=== PATIENT | male | born 1955 | race African-American/Black ===

== ENCOUNTER 2019-03-02 08:57 | Inpatient (IN) | payer OTHER ==
[~2019-03-02] VITALS: Ht 190.5 cm; Wt 109.3 kg
[~2019-03-02 08:57] MED LIST: ATORVASTATIN PO; BACITRACIN 50,000 UNIT ONE; BACITRACIN OINT 500U/GM, 15 GM ONE; BUPIVACAINE/PF 0.25% ONE; BUPIVACAINE/PF-EPI 0.5% 1:200K ONE; FENTANYL PF 250 MCG/5ML ONE; LISINOPRIL PO; MIDAZOLAM 1 MG/ML, 2ML ONE; PROPOFOL 50 ML ONE; SERTRALINE; THROMBIN 20,000 UNIT VIAL TP ONE; VANCOMYCIN 1,000 MG ONE; VITA1TAB19 PO; VITAMIN D PO
[2019-03-02] MEDS ORDERED: DIAZEPAM 5 MG TABLET PO ONE (09:00)
[2019-03-02] MEDS ORDERED: ACETAMINOPHEN 500 MG TABLET PO ONE (09:00)
[2019-03-02] MEDS ORDERED: GABAPENTIN 300 MG CAPSULE PO ONE (09:00)
[2019-03-02] MEDS ORDERED: LACTATED RINGERS 1,000 ML IV SCH (09:16)
[2019-03-02 09:26] VITALS: BP 141/96
[2019-03-02] MEDS ORDERED: ONDANSETRON 2MG/ML, 2ML IV PRN ×2 (11:00→16:30)
[2019-03-02] MEDS ORDERED: OXYcodone 5 MG/5 ML ORAL.SOL UDC PO PRN (11:00)
[2019-03-02] MEDS ORDERED: hydrALAzine 20 MG/ML, 1ML IV PRN (11:00)
[2019-03-02] MEDS ORDERED: DIAZEPAM 5 MG/ML, 2ML IVPush PRN (11:00)
[2019-03-02] MEDS ORDERED: ALBUTEROL/IPRATROPIUM 2.5MG/0.5MG, 3 ML NPPB PRN (11:00)
[2019-03-02] MEDS ORDERED: PROMETHAZINE 25 MG/ML, 1ML IV PRN (11:00)
[2019-03-02] MEDS ORDERED: SCOPOLAMINE PATCH, 1.5MG PATCH.TD72 TD PRN (11:00)
[2019-03-02] MEDS ORDERED: METOPROLOL 1 MG/ML, 5ML IV PRN (11:00)
[2019-03-02] MEDS ORDERED: MIDAZOLAM 1 MG/ML, 2ML IV PRN (11:00)
[2019-03-02] MEDS ORDERED: MEPERIDINE/PF 25MG/0.5ML IVPush PRN (11:00)
[2019-03-02] MEDS ORDERED: BUPIVACAINE/PF 0.25% INFIL ONE (11:04)
[2019-03-02] MEDS ORDERED: PROPOFOL 50 ML ONE ×2 (11:12→12:08)
[2019-03-02] MEDS ORDERED: EPHEDRINE 50 MG/ML, 1ML ONE (11:25)
[2019-03-02] MEDS ORDERED: PHENYLEPHRINE 10 MG/ML ONE (11:25)
[2019-03-02] MEDS ORDERED: FENTANYL PF 100 MCG/2ML ONE ×3 (11:51→13:52)
[2019-03-02] MEDS ORDERED: ONDANSETRON 2MG/ML, 2ML ONE (12:31)
[2019-03-02] MEDS ORDERED: DEXAMETHASONE 4 MG/ML, 1ML ONE (12:31)
[2019-03-02] MEDS ORDERED: PROPOFOL 10 MG/ML, 20ML ONE (12:31)
[2019-03-02] MEDS ORDERED: CEFAZOLIN 1,000 MG ONE (12:31)
[2019-03-02] MEDS ORDERED: HYDROmorphone 1 MG/ML, 1ML AMP ONE (13:11)
[2019-03-02] MEDS ORDERED: OXYcodone 5 MG/5 ML ORAL.SOL UDC ONE (13:11)
[2019-03-02] MEDS: FENTANYL PF 100 MCG/2ML IV PRN ×3 (13:14→13:55)
[2019-03-02] MEDS: HYDROmorphone 2 MG/ML, 1ML IVPush PRN ×3 (13:23→13:54)
[2019-03-02 16:07] VITALS: BP 112/74
[2019-03-02] MEDS ORDERED: SUCCINYLCHOLINE 20 MG/ML, 10ML ONE (16:17)
[2019-03-02] MEDS ORDERED: ROCURONIUM 10MG/ML,5ML ONE (16:17)
[2019-03-02] MEDS ORDERED: DIPHENHYDRAMINE 50 MG CAPSULE PO PRN (16:30)
[2019-03-02] MEDS ORDERED: HYDROmorphone 2MG TABLET PO PRN (16:30)
[2019-03-02] MEDS ORDERED: DIPHENHYDRAMINE 50 MG/ML, 1ML IVPush PRN (16:30)
[2019-03-02] MEDS ORDERED: HYDROmorphone 2 MG/ML, 1ML IM PRN (16:30)
[2019-03-02] MEDS ORDERED: DIPHENHYDRAMINE 50 MG/ML, 1ML IM PRN (16:30)
[2019-03-02] MEDS ORDERED: PROMETHAZINE 25 MG/ML, 1ML IM PRN (16:30)
[2019-03-02] MEDS ORDERED: BISACODYL 10 MG SUPP PR PRN (16:30)
[2019-03-02] MEDS: LABETALOL 5MG/ML, 20ML IV SCH (16:30)
[2019-03-02 16:50] VITALS: BP 109/62
[2019-03-02 19:39] VITALS: BP 128/88
[2019-03-02] MEDS: METHOCARBAMOL 750 MG TABLET PO SCH (20:04)
[2019-03-02] MEDS: CEFAZOLIN PMX 1GM/50ML 50 ML IVPB SCH (20:05)
[2019-03-02] MEDS ORDERED: CEFAZOLIN PMX 1GM/50ML 50 ML IVPB SCH (20:30)
[2019-03-02] MEDS ORDERED: ZOLPIDEM 5MG TABLET PO PRN (21:00)
[2019-03-02 23:39] VITALS: BP 114/72
[2019-03-03] MEDS: NS + 20MEQ KCL 1,000 ML IV SCH ×3 (00:01→15:30)
[2019-03-03 00:02] VITALS: BP 111/69
[2019-03-03] MEDS: LABETALOL 5MG/ML, 20ML IV SCH ×3 (00:39→16:30)
[2019-03-03] MEDS: CEFAZOLIN PMX 1GM/50ML 50 ML IVPB SCH (03:41)
[2019-03-03] MEDS: METHOCARBAMOL 750 MG TABLET PO SCH ×3 (03:41→21:06)
[2019-03-03 04:21] VITALS: BP 106/68
[2019-03-03 08:04] VITALS: BP 103/67
[2019-03-03] MEDS: OXYcodone/APAP 5/325MG TABLET PO PRN ×4 (09:08→21:14)
[2019-03-03] MEDS: SENNA/DOCUSATE TABLET PO SCH (09:09)
[2019-03-03] MEDS: MULTIVITS,STRESS FORMULA 1 TABLET PO SCH (09:09)
[2019-03-03] MEDS: ENOXAPARIN 40 MG/0.4 ML SQ SCH (13:49)
[2019-03-03 14:02] VITALS: BP 108/65
[2019-03-03 18:35] VITALS: BP 121/72
[2019-03-03] MEDS: HYDROcodone/APAP 5/325 TABLET PO PRN (21:07)
[2019-03-04 00:30] VITALS: BP 124/79
[2019-03-04] MEDS: NS + 20MEQ KCL 1,000 ML IV SCH ×3 (01:30→21:30)
[2019-03-04] MEDS: OXYcodone/APAP 5/325MG TABLET PO PRN ×3 (02:13→10:15)
[2019-03-04] MEDS: LABETALOL 5MG/ML, 20ML IV SCH (02:48)
[2019-03-04] MEDS: METHOCARBAMOL 750 MG TABLET PO SCH ×3 (05:39→21:26)
[2019-03-04] MEDS: MAGNESIUM HYDROXIDE 8%, 30ML UDC PO PRN (06:28)
[2019-03-04 08:06] VITALS: BP 130/70
[2019-03-04] MEDS: MULTIVITS,STRESS FORMULA 1 TABLET PO SCH (08:17)
[2019-03-04] MEDS: SENNA/DOCUSATE TABLET PO SCH (08:17)
[2019-03-04] MEDS: LABETALOL 5 MG/ML SYRINGE IV SCH ×2 (09:30→17:30)
[2019-03-04 13:19] VITALS: BP 121/74
[2019-03-04] MEDS: HYDROcodone/APAP 5/325 TABLET PO PRN ×3 (13:39→21:54)
[2019-03-04] MEDS: ENOXAPARIN 40 MG/0.4 ML SQ SCH (13:40)
[2019-03-04 19:38] VITALS: BP 123/78
[2019-03-05] MEDS: LABETALOL 5 MG/ML SYRINGE IV SCH (01:30)
[2019-03-05 01:57] VITALS: BP 125/86
[2019-03-05] MEDS: HYDROcodone/APAP 5/325 TABLET PO PRN ×6 (02:12→22:45)
[2019-03-05] MEDS: METHOCARBAMOL 750 MG TABLET PO SCH ×3 (05:04→21:34)
[2019-03-05 08:17] VITALS: BP 115/73
[2019-03-05] MEDS: SENNA/DOCUSATE TABLET PO SCH (09:32)
[2019-03-05] MEDS: NS + 20MEQ KCL 1,000 ML IV SCH ×2 (09:32→17:30)
[2019-03-05] MEDS: MULTIVITS,STRESS FORMULA 1 TABLET PO SCH (09:32)
[2019-03-05 13:54] VITALS: BP 125/79
[2019-03-05] MEDS: ENOXAPARIN 40 MG/0.4 ML SQ SCH (14:13)
[2019-03-05 19:39] VITALS: BP 136/80
[2019-03-05] MEDS: MAGNESIUM HYDROXIDE 8%, 30ML UDC PO PRN (21:34)
[2019-03-06 00:53] VITALS: BP 108/67
[2019-03-06] MEDS: NS + 20MEQ KCL 1,000 ML IV SCH ×2 (03:30→13:30)
[2019-03-06] MEDS: HYDROcodone/APAP 5/325 TABLET PO PRN ×2 (04:45→09:45)
[2019-03-06] MEDS: METHOCARBAMOL 750 MG TABLET PO SCH ×2 (04:45→13:46)
[2019-03-06] MEDS ORDERED: GABAPENTIN 300 MG CAPSULE PO SCH (09:00)
[2019-03-06] MEDS ORDERED: MAGNESIUM CITRATE 300ML ORAL SOL PO ONE (09:00)
[2019-03-06] MEDS ORDERED: BISACODYL 10 MG SUPP PR PRN (09:00)
[2019-03-06 09:14] VITALS: BP 114/74
[2019-03-06] MEDS: SENNA/DOCUSATE TABLET PO SCH (09:18)
[2019-03-06] MEDS: MULTIVITS,STRESS FORMULA 1 TABLET PO SCH (09:18)
[2019-03-06] MEDS ORDERED: HYDR-3307 PO (10:25)
[2019-03-06] MEDS ORDERED: METH750T87 PO (10:26)
[2019-03-06] MEDS ORDERED: GABA300C PO (10:28)
[2019-03-06] MEDS: ENOXAPARIN 40 MG/0.4 ML SQ SCH (13:46)
[2019-03-06 14:13] VITALS: BP 129/79
== END 2019-03-06 15:13 | disposition home health service (06) | DRG 519 ==
LOC: OUT 08:57 → 4NOR 15:45 → OUT 16:43 → 4NOR 03-05 02:30 → DCLOUNGE 03-06 14:47
PROVIDERS: ADMIT Neurological Surgery; ATTEND Neurological Surgery
PROC: 00NY0ZZ Release Lumbar Spinal Cord, Open Approach (ICD-10-PCS; 2019-03-02)
PROC: 4A11X4G Monitoring of Peripheral Nervous Electrical Activity, Intraoperative, External Approach (ICD-10-PCS; 2019-03-02)
PROC: 00QT0ZZ Repair Spinal Meninges, Open Approach (ICD-10-PCS; 2019-03-02)
PROC: 01NB0ZZ Release Lumbar Nerve, Open Approach (ICD-10-PCS; principal; 2019-03-02 10:00)
DX: M48.062 Spinal stenosis, lumbar region with neurogenic claudication (principal); G97.41 Accidental puncture or laceration of dura during a procedure; G43.909 Migraine, unspecified, not intractable, without status migrainosus; M47.26 Other spondylosis with radiculopathy, lumbar region; M19.90 Unspecified osteoarthritis, unspecified site; B19.20 Unspecified viral hepatitis C without hepatic coma; E11.51 Type 2 diabetes mellitus with diabetic peripheral angiopathy without gangrene; I10 Essential (primary) hypertension; F32.9 Major depressive disorder, single episode, unspecified
CPT/HCPCS: 72100; C1729; G0378; J0690; J1100; J1170; J1650; J2250; J2405; J2704; J3010; J3360; J3370; J3490; J0330; J2370; J7120